=== PATIENT | female | born 1965 | race Caucasian/White ===

== ENCOUNTER 2016-07-16 17:31 | Observation (INO) | payer MEDICARE ==
[~2016-07-16] VITALS: Ht 175.3 cm; Wt 56.0 kg
--- NOTE | ~2016-07-16 | DS ---
PATIENT'S NAME: MANINDER SHAHID [facility] AGE: 51 Y [address] ROOM: [place] [address] LOCATION: [facility] ADMIT DATE: 07/16/2016 Discharge Summary DISCHARGE DATE: 07/17/2016 FAMILY PHYSICIAN: Physician, Unknown ATTENDING PHYSICIAN: Kathleen Mae PRIMARY DIAGNOSES: 1. Suicidal ideations. 2. Major depression. 3. Alcohol dependence. 4. Anxiety, generalized. 5. Osteoarthritis, generalized. 6. Rheumatoid arthritis. 7. Chronic dyspepsia. 8. Tobaccoism. OPERATIONS/PROCEDURES: None. HISTORY OF PRESENTING ILLNESS/REASON FOR ADMISSION: Please refer to the H and P dictated 07/16/2016. HOSPITAL COURSE: The patient was admitted to the hospital as noted above with a presumptive diagnosis of suicidal ideation. There was concern for alcohol withdrawal syndrome at the point of her admission. She was hemodynamically stable over the course of her hospital stay. The patient did not exhibit any evidence for withdrawal over the course of her hospital stay. She was placed on the detox pathway. She was generally pleasant and cooperative with her cares. She had no significant change in her clinical condition over the course of her stay here. By the end of the second day of her hospital stay, it was felt she would be stable enough for discharge and for transfer to [facility] under Emergency Protective Custody for inpatient psychiatric care. DISCHARGE INSTRUCTIONS: 1. Diet: Regular as tolerated. 2. Activity as tolerated. MEDICATIONS: 1. Acetaminophen 650 mg p.o. q.4 h. p.r.n. pain. 2. Mylanta 30 mL p.o. q.i.d. 3. Colace 100 mg p.o. t.i.d. 4. Pepcid 20 mg p.o. b.i.d. 5. Folate 1 mg p.o. daily. 6. Gabapentin 300-600 mg p.o. daily. PATIENT'S NAME: MANINDER SHAHID [facility] AGE: 51 Y [address] ROOM: [place] [address] LOCATION: [facility] ADMIT DATE: 07/16/2016 Discharge Summary DISCHARGE DATE: 07/17/2016 FAMILY PHYSICIAN: Physician, Unknown ATTENDING PHYSICIAN: Kathleen Mae 7. Lamictal 150 mg p.o. daily. 8. Ativan 1 mg p.o. q.4 h. p.r.n. anxiety. 9. Milk of magnesia 30 mL p.o. q.i.d. p.r.n. constipation. 10. Menthol cough drops q.4 h. p.r.n. sore throat. 11. Naltrexone 50 mg p.o. daily. 12. Neosporin ointment applied topically b.i.d. p.r.n. 13. Nicotine patch 21 mg apply and change daily. 14. Protonix 40 mg p.o. daily. 15. Paxil 20 mg p.o. q.h.s. 16. Lip balm applied topically p.r.n. 17. Artificial Tears p.r.n. 18. Thiamine 100 mg p.o. daily. 19. Sudafed 30 mg p.o. q.i.d. p.r.n. congestion. 20. Vitamin B complex daily. FOLLOW UP: She will have inpatient follow up at [facility] and eventual follow up with primary care provider, Dr. Ambrocio Parra. CONDITION ON DISCHARGE: Fair. Total time spent on discharge process was 35 minutes. MD SALVATORE PERRY/olayinka /[id number] d: 07/18/16514 t: 07/21/16 1612, DISCHARGE SUMMARY
--- NOTE | ~2016-07-16 | HP ---
PATIENT'S NAME: MANINDER SHAHID [facility] AGE: 51 Y [address] ROOM: [address] [address] LOCATION: [facility] ADMIT DATE: 07/16/2016 History & Physical DISCHARGE DATE: FAMILY PHYSICIAN: PHYSICIAN, UNKNOWN ATTENDING PHYSICIAN: SINGH MORAES DATE OF SERVICE: CHIEF COMPLAINT: Suicide attempt/alcohol withdrawal. HISTORY OF PRESENT ILLNESS: The patient is a 51-year-old female with past medical history significant for longstanding alcoholism, depression, and prior suicide attempts. The patient was taken to [facility] yesterday under emergent protective custody by the police to [facility]. The patient was threatening to commit suicide to her friend. She also has been drinking for a protracted period of time. She was taken to the [facility]. Today, she was evaluated there by the physician and it was felt that she is at risk of developing alcohol withdrawal, hence she was sent to the [facility] ER for detoxification. On history, the patient is not a very forthcoming historian. However, she denies any ongoing symptoms of alcohol withdrawal. She does, however, endorse a prior history of seizures, though this is questionable. She denies any nausea, vomiting, diarrhea, chest pain, shortness of breath, or palpitations. She really just wants to be left alone and sleep. REVIEW OF SYSTEMS: All 10 systems have been reviewed and are negative aside from pertinent positives mentioned above. PAST MEDICAL HISTORY: 1. Osteoarthritis. 2. Longstanding alcoholism. 3. Rheumatoid arthritis. 4. Depression and anxiety. 5. Prior suicide attempts. 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 SOCIAL HISTORY: Significant for longstanding alcohol use and tobacco use approximately 1 pack a day. PATIENT'S NAME: MANINDER SHAHID [facility] AGE: 51 Y [address] ROOM: [address] [address] LOCATION: [facility] ADMIT DATE: 07/16/2016 History & Physical DISCHARGE DATE: FAMILY PHYSICIAN: PHYSICIAN, UNKNOWN ATTENDING PHYSICIAN: SINGH MORAES FAMILY HISTORY: Pertinent family history was obtained and is noncontributory due to known underlying etiology for her presentation. CURRENT MEDICATIONS: 1. Acetaminophen 650 daily. 2. Mylanta. 3. Colace. 4. Pepcid. 5. Folic acid. 6. Gabapentin. 7. Lamictal. 8. Lorazepam. 9. Magnesium hydroxide. 10. Naltrexone. 11. Neosporin for minor wounds. 12. Nicotine patch. 13. Pantoprazole. 14. Paroxetine. 15. Lip balm. 16. Polyvinyl alcohol for her artificial eyedrops. 17. Sudafed. 18. Thiamine. 19. Vitamin B complex. PHYSICAL EXAMINATION: VITAL SIGNS: Blood pressure 148/98, pulse is 103, temperature 98.2, saturating 95% on room air, and respirations are 16. GENERAL: Appears as a chronically ill, middle-aged female, in no acute distress. NEUROLOGIC: Exam reveals no tremor or focal deficits. HEENT: ENT exam reveals dry mucous membranes. LYMPHATIC: No cervical lymphadenopathy. ENDOCRINE: No thyromegaly. LUNGS: Clear to auscultation. HEART: Rate is regular with no appreciable murmurs, gallops, or rubs. ABDOMEN: Soft, nontender, and nondistended. : No costovertebral angle tenderness. VASCULAR: 2+ pedal pulses. MUSCULOSKELETAL: High arches of both feet. PSYCHIATRIC: At this point, the patient denies any suicidal or homicidal ideations. She is actually motivated to go home and cut down on drinking. LABORATORY DATA: Review of the labs from this hospitalization is significant for potassium of PATIENT'S NAME: MANINDER SHAHID [facility] AGE: 51 Y [address] ROOM: [place] [address] LOCATION: [facility] ADMIT DATE: 07/16/2016 History & Physical DISCHARGE DATE: FAMILY PHYSICIAN: PHYSICIAN, UNKNOWN ATTENDING PHYSICIAN: SINGH MORAES 3.6, AST 157, ALT 98. Acetaminophen negative. Salicylate 5.2. HCG is negative. CBC remarkable for platelets of 113. ASSESSMENT AND PLAN: This is a 51-year-old female who will be admitted for observation for monitoring and potential treatment of alcohol withdrawal. Individual problems to be addressed as follows: 1. Concern for withdrawal. At this point, the patient really does not appear to be in any withdrawal. As such, I will not be starting her on a scheduled Librium taper as of yet. We will provide her with gentle doses of p.r.n. Ativan and monitor her for development of withdrawal. I believe if she does not develop withdrawal in 24 hours, she will not need further detox. 2. History of alcoholism. We will treat the patient with a banana bag as well as fluids, as she does look somewhat dehydrated right now. 3. Tobacco abuse. Tobacco cessation counseling has been provided for more than 5 minutes. 4. Osteoarthritis. We will provide her with pain control with NSAIDs as well as PPIs. 5. Transaminitis. This is consistent with alcoholic pattern. We will consider following these, but they do not appear to be significantly elevated. 6. Suicidal ideations. The patient is under the EPC and will be transferred back to [facility]. 7. Depression and anxiety. We will defer that to this psychiatric intervention provider. Additional management will depend on clinical course. Time dedicated to this patient's encounter is 35 minutes. MD MAGDALENA BERNSTEIN/olayinka /[id number]: [id number] T: 730 HISTORY & PHYSICAL
--- NOTE | ~2016-07-16 | ER ---
PATIENT'S NAME: MANINDER SHAHID [facility] AGE: 51 Y [address] ROOM: [id number] [place], [place] [address] LOCATION: [facility] ADMIT DATE: 07/16/2016 ER/Outpatient Report DISCHARGE DATE: FAMILY PHYSICIAN: PHYSICIAN, UNKNOWN ATTENDING PHYSICIAN: SINGH MORAES Time of Arrival: 1731 hours. Time of Evaluation: 1731 hours. CHIEF COMPLAINT: Medical clearance, detox from alcohol. HISTORY OF PRESENT ILLNESS: This is a 51-year-old female, who presents to the ER via [facility] from [facility]. The patient was taken there yesterday via EPC due to suicidal ideations. She was not medically cleared at that time, and she was put in detox precautions. They did do there alcohol withdrawal severity scale, and it worsened today. They did give Ativan at 2:30 this afternoon, and they did not feel comfortable keeping her there with her seizure disorder and history. Upon the patient's arrival, the patient states that she was feeling suicidal yesterday but is not having as many thoughts of that today but is feeling depressed. She states she does drink alcohol daily. Her last drink was last night. She usually drinks vodka with pop. She states she is not interested in quitting alcohol, really reason why she was admitted to [facility] was for her suicidal thoughts. ALLERGIES: NONE. MEDICATIONS: Please see medication list in nurse's notes. PAST MEDICAL HISTORY: 1. Pancreatitis. 2. Alcohol-induced hepatitis. 3. Alcohol-related gastritis. 4. Osteoarthritis. 5. Seizure disorder. 6. Alcohol withdrawal seizures. 7. Hypertension. 8. Dyslipidemia. 9. Suicidal ideations. PAST SURGICAL HISTORY: Tubal ligation, breast biopsy and excisions. [facility] 51 Y [address] ROOM: [id number] [place], [place] [address] LOCATION: [facility] ADMIT DATE: 07/16/2016 ER/Outpatient Report DISCHARGE DATE: FAMILY PHYSICIAN: PHYSICIAN, UNKNOWN ATTENDING PHYSICIAN: SINGH MORAES SOCIAL HISTORY: She does smoke cigarettes and drinks alcohol daily. REVIEW OF SYSTEMS: A 10-point review of system was completed and was negative with the exception of those discussed in the HPI. PHYSICAL EXAMINATION: VITAL SIGNS: Weight 57.0 kg taken, blood pressure is 178/104, pulse 100, respirations 18, temperature 99.3 degrees tympanically, saturations 96% on room air. Edenilson Coma Score is 15. GENERAL: Alert, calm, well-developed female, in no acute distress. HEENT: Head: Normocephalic. She does display moist mucous membranes. Eyes: Pupils are equal and reactive to light. NECK: Supple. No lymphadenopathy. LUNGS: Clear to auscultation bilaterally. No wheezes or crackles. Normal respiratory effort. HEART: Regular rate and rhythm. No lifts, thrills, or murmurs. ABDOMEN: Soft, it is nontender. She has good bowel sounds throughout. No masses are palpated. EXTREMITIES: No clubbing or cyanosis. She does have tremor noted to bilateral upper and lower extremities. LABORATORY DATA AND X-RAYS: CBC: White count is 4.5, hemoglobin is 13.9, platelets 113. CMS: Potassium is 3.6, AST is 157, ALT is 98, alkaline phosphatase is 77, BUN 12, creatinine 0.6. Alcohol level is less than 0.010. Acetaminophen is less than 2.0. Salicylate is 5.2. HCG quant is 1.0. TSH is 1.020. Amylase 37, lipase 110. EKG shows normal sinus rhythm. IMPRESSION: 1. Detoxification from alcohol. 2. Suicidal ideations. ASSESSMENT AND PLAN: We did start an IV here in the emergency room. We did give her a banana bag and Ativan 1 mg IV along with Zofran 4 mg IV. The patient did rest comfortably the entire stay. I did call Dr. Moraes, the hospitalist on-call, and he will be admitting her for detox precautions. The patient understands and agrees with care. PATIENT'S NAME: MANINDER SHAHID [facility] AGE: 51 Y [address] ROOM: [address] [address] LOCATION: [facility] ADMIT DATE: 07/16/2016 ER/Outpatient Report DISCHARGE DATE: FAMILY PHYSICIAN: PHYSICIAN, UNKNOWN ATTENDING PHYSICIAN: OLADESINGH MALONE PA-C FOR MD NATHANIEL FAIRBANKSJ/modl /[id number] d: t: 07/20/16 1312, OUTPATIENT REPORT
[~2016-07-16 17:31] MED LIST changes: -ARTIFICIAL TEAR15 ML OPHTH; -ATIVAN 1 MG1 MG PO; -CATAPRES0.2 MG PO; -COLACE100 MG PO; -COUGH DROPS1 EAC1 PO; -LIP BALM BASE90 GM TOP; -MILK OF MA400 MG/5 M PO; -MYLANTA (MAG-AL30 ML PO; -NEOSPORIN1 PKT TOP; -NICODE TOP; -NICOTINE PATCH1 EAC2 TRANS; -PEPCID20 MG PO; -PROTONIX40 MG PO; -SUDAFED30 MG PO; -TYLENOL EXTRA500 MG PO; -TYLENOL325 MG PO; -VITAL-D RX TAB1 EACH PO
[2016-07-16 17:59] LABS: BASOPHIL % 0.7 %; EOSINOPHIL % 0.2 %; HEMATOCRIT 40.9 % (33.0-46.0); HEMOGLOBIN 13.9 g/dL (10.0-15.0); IMMATURE GRANULOCYTE % 0.2 %; LYMPHOCYTE # 1.2 K/uL (0.8-4.0); LYMPHOCYTE % 26.7 %; MCH 32.4 pg (27.0-34.0); MCV 95.3 fl (83.0-98.0); MONOCYTE # 0.6 K/uL (0.0-1.0); MONOCYTE % 12.6 %; MPV 10.7 fl (9.4-12.4); NEUTROPHIL # (ANC) 2.7 K/uL (1.8-7.8); NEUTROPHIL % 59.6 %; NRBC % 0 /100WBC (0-0.00); PLATELET COUNT 113 K/uL (150-450); RBC 4.29 M/uL (3.50-5.50); RDW-CV 13.6 % (11.9-14.6); WBC 4.5 K/uL (4.0-11.0)
[2016-07-16 18:20] LABS: ALK PHOS 77 IU/L (33-138); ALT 98 IU/L (12-78); ANION GAP 11.6 (10.0-19.0); AST 157 IU/L (10-40); BLOOD UREA NITROGEN 12 mg/dL (6-24); CALCIUM 9.3 mg/dL (8.5-10.5); CHLORIDE 105 mMol/L (96-110); CO2 25 mMol/L (22-32); CREATININE 0.6 mg/dL (0.5-1.1); ESTIMATED GFR (MDRD EQUATION) > 60; POTASSIUM 3.6 mMol/L (3.7-5.1); SODIUM 138 mMol/L (135-145); TOTAL BILIRUBIN 0.5 mg/dL (0.0-1.5); TOTAL PROTEIN 8.9 g/dL (6.0-8.4)
[2016-07-16] MEDS ORDERED: TYLENOL ARTHRI650 MG PO (20:31)
[2016-07-16] MEDS ORDERED: ARTIFICIAL TEAR15 ML OPHTH (20:32)
[2016-07-16] MEDS ORDERED: FOLIC ACID1 MG PO (20:35)
[2016-07-16] MEDS ORDERED: NICOTINE PATCH1 EAC2 TRANS (20:36)
[2016-07-16] MEDS ORDERED: PROTONIX40 MG PO (20:37)
[2016-07-16] MEDS ORDERED: TYLENOL325 MG PO (20:38)
[2016-07-16] MEDS ORDERED: MYLANTA (MAG-AL30 ML PO (20:38)
[2016-07-16] MEDS ORDERED: LIP BALM BASE90 GM TOP (20:38)
[2016-07-16] MEDS ORDERED: PEPCID20 MG PO (20:39)
[2016-07-16] MEDS ORDERED: COLACE100 MG PO (20:39)
[2016-07-16] MEDS ORDERED: MILK OF MA400 MG/5 M PO (20:40)
[2016-07-16] MEDS ORDERED: ATIVAN 1 MG1 MG PO (20:40)
[2016-07-16] MEDS ORDERED: NEOSPORIN1 PKT TOP (20:41)
[2016-07-16] MEDS ORDERED: SUDAFED30 MG PO (20:41)
[2016-07-16] MEDS ORDERED: COUGH DROPS1 EAC1 PO (20:42)
--- NOTE | 2016-07-16 21:02 | NUR ---
Patient is 51 yo female admitted from [facility] this evening with alcohol intoxication and suicidal ideation and B/P problems. saline lock in right antecubital space without erythema or edema noted at site. education is given as documented. pneumatics are not on patient at this time due to suicidal ideation. patient denies other needs at this time. Report is given to LUCIO Trevino.
--- NOTE | 2016-07-17 05:15 | NUR ---
PATIENT TRANSFERRED FROM [facility] FOR SEVERE HTN 163/115 AND HR 121 EVEN AFTER GIVEN ATIVAN IVP WITH CIWA OF 5 DUE TO DETOX LAST NIGHT. PATIENT WAS EPC'D TO [facility] ON 07/15 FOR EXTREME INTOXICATION AND SUCIDAL IDEATIONS AND MUST RETURN THERE TO BE DISCHARGED PER [facility] REQUIREMENTS. UP TO FLOOR @2019, 1:1 WITH 15MIN CHECKS AND CIWA WAS <1 DURING THIS SHIFT. PO MEDICATIONS FOR HTN, DEPRESSION AND SEIZURES GIVEN, BP @0300 WAS STABLE @145/83. PATIENT HAS RAC PIV SALINE LOCK FOR DAILY BANANA BAG AND IV ATIVAN WHEN NEEDED, LAST DOSE OF ATIVAN WAS GIVEN IN THE ER@1800, ZOFRAN @1800 FOR NAUSEA AND TYLENOL PO @0045 FOR REPORTED RIGHT ELBOW PAIN. PATIENT SLEPT MOST OF THE SHIFT, UP TO BATHROOM TO VOID AND BM THIS AM WITH MONITORING. PLEASE DO NOT USE LUE PATIENT HAS HAD A BREAST MASS REMOVED IN THE PAST AND ALSO NODES. GENERALIZED WEAKNESS NOTED.
[2016-07-17] MEDS ORDERED: TYLENOL EXTRA500 MG PO (10:15)
--- NOTE | 2016-07-17 10:20 | NUR ---
NOTIFIED MARIAM AT THE [facility] AT AND UPDATED HER THAT I REVIEWED THE CHART AND THERE IS POSSIBILITY THAT MANINDER WILL BE COMING BACK THERE TODAY. SHE TELLS ME THAT SHE WILL HAVE TO SPEAK TO THE COMPLAINT MANAGER AND WILL LET ME KNOW WHAT THEY DECIDE.
--- NOTE | 2016-07-17 14:00 | NUR ---
RECEUVED REFERRAL THAT PATIENT IS MEDICALLY CLEARED TO GO BACK TO . I SPOKE TO MARIAM AT THE ACCESS CENTER SHE TELLS ME THAT PATIENT'S NURSE WILL HAVE TO DO A NURSE TO NURSE REPORT AT 2271.I SPOKE TO VANE CHARGE NURSE ON 3N SHE WILL HAVE THE NURSE GIVE REPORT THE NURSE AT .
--- NOTE | 2016-07-17 14:02 | NUR ---
Admitted from [facility] with alcohol withdrawal,suicidal ideation,& high B/P.Has been cooperative & pleasant.Denies any suicidal ideations at this time.Has had no signs of withdrawal.Not much appetite.No c/o pain.
--- NOTE | 2016-07-17 15:00 | NUR ---
VANE SPOKE TO THE D AND ASKED THEM TO TRANSPORT PATIENT TO AND THAT SHE IS EPC. THEY INFORM HER THAT THEY ARE GOING TO TRANSPORT THAT IT IS NOT THEIR RESPONSIBILITY. SINCE RY CHOOSE TO SEND HER THERE. I NOTIFIED JOANNE WITH [facility] AND SHE WILL CONTACT AMBULANCE CREW TO TRANSPORT PATIENT TO . AMBULANCE CERT FORM COMPLETED BY DR. OWENS. PATIENT IN AGREEMENT TO GOING BACK TO . PACKET SENT WITH PATIENT. I NOTIFIED THE ADULT UNIT AND SPOKE TO REDD TO INFORM HER THAT PATIENT IS ON HER WAY THERE.
--- NOTE | 2016-07-17 15:50 | NUR ---
Nurse to nurse pt.report given to [facility] nurse Hannah RN at 1410.Pt.was dismissed per w/c at 1550 with ambulance personel to be transferred to [facility].Transfer papers were sent with vending route driver.Pt.was cooperative & no c/o pain or withdrawal symptoms.
[2016-07-19] MEDS ORDERED: CATAPRES0.2 MG PO (12:47)
[2016-11-05] MEDS ORDERED: FOLIC ACID1 MG PO (10:18)
[2016-11-05] MEDS ORDERED: NICODE TOP (10:24)
[2016-11-07] MEDS ORDERED: VITAL-D RX TAB1 EACH PO (11:25)
== END 2016-07-17 15:30 ==
LOC: GMED 17:31 → G3N 19:22
PROVIDERS: Physician Assistant Medical; ADMIT Hospitalist
DX: F10.239 Alcohol dependence with withdrawal, unspecified (principal); F41.1 Generalized anxiety disorder; F32.9 Major depressive disorder, single episode, unspecified; K70.10 Alcoholic hepatitis without ascites; K29.20 Alcoholic gastritis without bleeding; M15.9 Polyosteoarthritis, unspecified; M06.9 Rheumatoid arthritis, unspecified; R45.851 Suicidal ideations; F17.210 Nicotine dependence, cigarettes, uncomplicated; Z79.899 Other long term (current) drug therapy
CPT/HCPCS: G0378; G0480; J2060; J2405

== ENCOUNTER → 2016-07-16 | Outpatient (CLI) | payer MEDICARE, OTHER ==
[~2016-07-16] MED LIST: ARTIFICIAL TEAR15 ML OPHTH; ATIVAN 1 MG1 MG PO; B COMPLEX1 EACH PO; B-COMPLEX WITH1 EAC1 PO; CATAPRES0.2 MG PO; COLACE100 MG PO; COUGH DROPS1 EAC1 PO; DILANTIN100 MG PO; FLORAJEN3 CAPS460 MG PO; FOLIC ACID1 MG PO; LAMICTAL100 MG PO; LAMICTAL25 MG PO; LIP BALM BASE90 GM TOP; LISINOPRIL40 MG PO; LOMOTIL1 TAB PO; MELATONIN5 MG PO; MENOPAUSE RELI1 EACH PO; MILK OF MA400 MG/5 M PO; MYLANTA (MAG-AL30 ML PO; NEOSPORIN1 PKT TOP; NEURONTIN100 MG PO; NEURONTIN300 MG PO; NICODE TOP; NICODERM/HABITR21 MG TRANS; NICOTINE PATCH1 EAC2 TRANS; PAXIL20 MG PO; PEPCID20 MG PO; PRINIVIL (ZESTR20 MG PO; PROTONIX40 MG PO; SUDAFED30 MG PO; THERAGRAN-M1 TAB PO; THIAMINE HCL100 MG PO; TREXAN (REVIA)50 MG PO; TYLENOL ARTHRI650 MG PO; TYLENOL EXTRA500 MG PO; TYLENOL325 MG PO; VITAL-D RX TAB1 EACH PO
== END | disposition disaster alternative care site (69) ==
LOC: GAMB 17:12
DX: F10.10 Alcohol abuse, uncomplicated (principal); I10 Essential (primary) hypertension; Z79.899 Other long term (current) drug therapy; Z88.6 Allergy status to analgesic agent
CPT/HCPCS: A0425; A0429